=== PATIENT | female | born 1970 | race Caucasian/White ===

== ENCOUNTER 2016-12-04 16:29 | Emergency (ER) | payer MEDICAID ==
[2016-12-04 18:29] VITALS: BP 117/85
== END 2016-12-04 18:29 | disposition home or self-care (01) ==
LOC: ED 16:29
DX: H66.92 Otitis media, unspecified, left ear (principal); R51 Headache; I10 Essential (primary) hypertension
CPT/HCPCS: J0696; J1885; J2001

== ENCOUNTER 2017-05-09 11:55 | Inpatient (IN) | payer MEDICAID ==
[~2017-05-09] VITALS: Ht 165.1 cm; Wt 106.3 kg
[2017-05-09 12:45] LABS: RED CELL DISTRIBUTION WIDTH 13.2 % (11.5-14.5)
[2017-05-09 12:52] LABS: CALCIUM 8.8 mg/dL (8.5-10.1); CARBON DIOXIDE 28.5 mmol/L (21-32); CHLORIDE SERUM 103 mmol/L (98-107); CREATININE SERUM 0.7 mg/dL (0.6-1.0); GFR1 > 60 mL/min; GLUCOSE SERUM 101 mg/dL (74-106); POTASSIUM SERUM 4.1 mmol/L (3.5-5.1); SODIUM SERUM 139 mmol/L (136-145)
[2017-05-09 12:57] LABS: ALBUMIN 3.6 g/dL (3.4-5.0); ALKALINE PHOSPHATASE 68 U/L (46-116); ALT/SGPT 36 U/L (14-59); AST/SGOT 28 U/L (15-37); BILIRUBIN TOTAL 0.3 mg/dL (0.20-1.00); TOTAL PROTEIN, SERUM 8.2 g/dL (6.4-8.2)
[2017-05-09 13:25] LABS: PLATELET COUNT 216 x10^3mcL (130-400)
[2017-05-09 13:29] LABS: BASOPHIL % 3.3 % (0-2)
[2017-05-09 13:40] LABS: CHOLESTEROL/HDL RATIO 4.3
[2017-05-09 13:50] LABS: FREE T4 0.88 ng/dL (0.76-1.46); FREE THYROXINE INDEX 2.2 ug/dL (1.4-4.5); T4(THYROXINE) 6.6 ug/dL (4.7-13.3)
[2017-05-09 15:11] VITALS: BP 120/79
[2017-05-09] MEDS ORDERED: PROZ20 PO (17:05)
[2017-05-09] MEDS ORDERED: DICLOFENAC SODI75 MG PO (17:05)
[2017-05-09] MEDS ORDERED: TYL500 PO (17:07)
[2017-05-09] MEDS ORDERED: NITROSTAT0.4 MG SL (17:10)
[2017-05-09] MEDS ORDERED: ENALAPRIL MALEAT5 MG PO (17:10)
[2017-05-09] MEDS ORDERED: SIMVASTATIN10 M1 PO (17:11)
[2017-05-09] MEDS ORDERED: ABILIFY5 M1 PO (17:12)
[2017-05-09] MEDS ORDERED: VITAMIN D50000 I4 PO (17:12)
[2017-05-09] MEDS ORDERED: NEU300 PO (17:15)
[2017-05-09] MEDS ORDERED: GABAPENTIN300 M4 PO (17:15)
[2017-05-09] MEDS ORDERED: PROZ10 PO (17:18)
[2017-05-09 17:36] VITALS: BP 131/83
[2017-05-09 20:00] LABS: UA SPECIFIC GRAVITY <=1.005 (1.005-1.035); microscopic required? YES; urine erythrocyte TRACE (NEGATIVE)
[2017-05-09 20:19] LABS: AMPHETAMINE QUAL UR NONE DETECTED (NEG <=1000)
[2017-05-09 20:39] VITALS: BP 120/55
[2017-05-10 05:40] LABS: CALCIUM 8.6 mg/dL (8.5-10.1); CARBON DIOXIDE 30.1 mmol/L (21-32); CHLORIDE SERUM 107 mmol/L (98-107); CREATININE SERUM 0.7 mg/dL (0.6-1.0); GFR1 > 60 mL/min; GLUCOSE SERUM 88 mg/dL (74-106); MAGNESIUM 2.1 mg/dL (1.8-2.4); PHOSPHOROUS 4.5 mg/dL (2.5-4.9); POTASSIUM SERUM 4.1 mmol/L (3.5-5.1); SODIUM SERUM 141 mmol/L (136-145)
[2017-05-10 05:47] LABS: BASOPHIL % 0.6 % (0-2); PLATELET COUNT 175 x10^3mcL (130-400); RED CELL DISTRIBUTION WIDTH 14.3 % (11.5-14.5)
[2017-05-10 05:49] VITALS: BP 105/68
[2017-05-10 09:16] VITALS: BP 128/83
[2017-05-10 12:36] VITALS: BP 115/72
[2017-05-10 14:40] VITALS: BP 115/72
[2017-05-10 16:59] VITALS: BP 136/83
== END 2017-05-10 17:40 | disposition home or self-care (01) | DRG 203 ==
LOC: ED 11:55 → DU 13:03
PROVIDERS: Emergency Medicine; ADMIT Family Medicine
DX: M94.0 Chondrocostal junction syndrome [Tietze] (principal); N17.0 Acute kidney failure with tubular necrosis; I10 Essential (primary) hypertension; E78.5 Hyperlipidemia, unspecified; G43.909 Migraine, unspecified, not intractable, without status migrainosus; E66.9 Obesity, unspecified; Z68.39 Body mass index [BMI] 39.0-39.9, adult
CPT/HCPCS: 83880; 84439; 90658; J1885; J3010; J7030; Q0092

== ENCOUNTER 2019-01-08 17:25 | Emergency (ER) | payer MEDICAID ==
[~2019-01-08] VITALS: Ht 165.1 cm; Wt 106.1 kg
[~2019-01-08 17:25] MED LIST: ABILIFY5 M1 PO; DICLOFENAC SODI75 MG PO; ENALAPRIL MALEAT5 MG PO; GABAPENTIN300 M4 PO; NEU300 PO; NITROSTAT0.4 MG SL; PROZ10 PO; PROZ20 PO; SIMVASTATIN10 M1 PO; TYL500 PO; VITAMIN D50000 I4 PO
[2019-01-08 17:31] VITALS: Ht 165.1 cm; Wt 106.1 kg
[2019-01-08 19:21] LABS: BASOPHIL % 0.3 % (0-2); PLATELET COUNT 252 x10^3mcL (130-400); RED CELL DISTRIBUTION WIDTH 15.5 % (11.5-14.5)
[2019-01-08 19:29] LABS: CALCIUM 8.8 mg/dL (8.5-10.1); CARBON DIOXIDE 29.7 mmol/L (21-32); CHLORIDE SERUM 102 mmol/L (98-107); CREATININE SERUM 0.8 mg/dL (0.6-1.0); GFR1 > 60 mL/min; GLUCOSE SERUM 119 mg/dL (74-106); POTASSIUM SERUM 3.4 mmol/L (3.5-5.1); SODIUM SERUM 139 mmol/L (136-145)
[2019-01-08 19:36] LABS: ALBUMIN 3.3 g/dL (3.4-5.0); ALKALINE PHOSPHATASE 84 U/L (46-116); ALT/SGPT 49 U/L (14-59); AST/SGOT 24 U/L (15-37); BILIRUBIN TOTAL 0.3 mg/dL (0.20-1.00); LIPASE 102 IU/L (73-393); TOTAL PROTEIN, SERUM 7.9 g/dL (6.4-8.2)
[2019-01-08 20:43] VITALS: BP 105/65
== END 2019-01-08 20:43 | disposition home or self-care (01) ==
LOC: ED 17:25
PROVIDERS: Emergency Medicine
DX: A08.4 Viral intestinal infection, unspecified (principal)
CPT/HCPCS: J2270; J2405; Q0092

== ENCOUNTER 2019-02-20 23:54 | Emergency (ER) | payer MEDICAID ==
[~2019-02-20] VITALS: Ht 165.1 cm; Wt 103.9 kg
[2019-02-21 00:02] VITALS: BP 131/74; Ht 165.1 cm; Wt 103.9 kg
== END 2019-02-21 01:36 | disposition home or self-care (01) ==
LOC: ED 23:54
DX: L50.9 Urticaria, unspecified (principal); I10 Essential (primary) hypertension; E78.00 Pure hypercholesterolemia, unspecified; Z88.6 Allergy status to analgesic agent; Z90.710 Acquired absence of both cervix and uterus
CPT/HCPCS: J1100; Q0163

== ENCOUNTER 2019-03-12 21:01 | Inpatient (IN) | payer MEDICAID ==
[~2019-03-12] VITALS: Ht 165.1 cm; Wt 111.0 kg
[2019-03-12 21:07] VITALS: Ht 165.1 cm; Wt 111.0 kg
[2019-03-12 21:29] LABS: BASOPHIL % 0.5 % (0-2); PLATELET COUNT 235 x10^3mcL (130-400)
[2019-03-12 21:31] LABS: RED CELL DISTRIBUTION WIDTH 15.8 % (11.5-14.5)
[2019-03-12 21:40] LABS: CALCIUM 8.5 mg/dL (8.5-10.1); CARBON DIOXIDE 30.8 mmol/L (21-32); CHLORIDE SERUM 101 mmol/L (98-107); CREATININE SERUM 0.9 mg/dL (0.6-1.0); GFR1 > 60 mL/min; GLUCOSE SERUM 89 mg/dL (74-106); POTASSIUM SERUM 3.7 mmol/L (3.5-5.1); SODIUM SERUM 141 mmol/L (136-145)
[2019-03-12 21:44] LABS: ALKALINE PHOSPHATASE 75 U/L (46-116); ALT/SGPT 48 U/L (14-59); AST/SGOT 23 U/L (15-37); BILIRUBIN TOTAL 0.3 mg/dL (0.20-1.00); LIPASE 1123 IU/L (73-393); TOTAL PROTEIN, SERUM 7.5 g/dL (6.4-8.2)
[2019-03-12 21:47] LABS: ALBUMIN 3.3 g/dL (3.4-5.0)
--- NOTE | 2019-03-13 00:17 | NUR ---
REC'D A 48/F IN RM 15 WITH C/O EPIGASTRIC PAIN WITH NAUSEA SINCE THE AM. HX OF GALLBLADDER REMOVAL AND HERNIA REPAIR. PT DESCRIBES INTERMITTENT, PRESSURELIKE AND NONRADIATING. PT AAOX4, CLEAR SPEECH, RESP E/U, NO ACUTE DISTRESS NOTED.
--- NOTE | 2019-03-13 00:28 | NUR ---
PT INSTRUCTED TO GIVE CLEAN CATCH URINE SAMPLE. PT AMBULATED TO AND FROM RESTROOM WITH STEADY GAIT.
--- NOTE | 2019-03-13 01:32 | NUR ---
PT REPORTS PAIN IS INTERMITTENT, PT RATES PAIN A 5/10 AND STATES IT IS TOLERABLE. PT IS SPEAKING IN FULL CLEAR SENTENCES. PT FAMILY MEMBER AT BEDSIDE.
--- NOTE | 2019-03-13 02:40 | NUR ---
PT MADE AWARE OF POSSIBLE ADMISSION. PT REPORTS BEING HUNGRY, PT PROVIDED WITH APPLE JUICE AND SANDWHICH.
--- NOTE | 2019-03-13 03:48 | NUR ---
PT AMBULATED TO AND FROM RESTROOM WITH STEADY GAIT.
[2019-03-13] MEDS ORDERED: MICROZIDE12.5 MG PO (03:57)
[2019-03-13] MEDS ORDERED: NEURONTIN400 MG PO (03:58)
[2019-03-13] MEDS ORDERED: FLUOXETINE HYDR20 M2 PO (03:58)
[2019-03-13] MEDS ORDERED: STRATTERA40 MG PO (03:59)
[2019-03-13] MEDS ORDERED: VASOTEC20 MG PO (03:59)
[2019-03-13] MEDS ORDERED: ASPIR 8181 MG PO (03:59)
[2019-03-13] MEDS ORDERED: DICLOFENAC SOD75 M1 PO (04:00)
--- NOTE | 2019-03-13 04:47 | NUR ---
PT LAYING IN BED, PT EASILY AROUSABLE, NO S/S OF DISTRESS NOTED. PT FAMILY MEMBER AT BEDSIDE.
--- NOTE | 2019-03-13 05:36 | NUR ---
REPORT GIVEN TO LAURO VANG TO ASSUME CARE OF PT.
[2019-03-13 06:29] VITALS: BP 118/69
--- NOTE | 2019-03-13 06:43 | NUR ---
RECEIVED PT FROM ED VIA WHEELCHAIR, KEPT COMFORTABLE IN BED. A/O X4, ADMITTED WITH COMPLAINTS OF ABD. PAIN AND NAUSEA X1 DAY. RESP. EVEN AND UNLABORED. LUNG SOUNDS CLEAR BILAT. ON ROOM AIR, NO ACUTE DISTRESS NOTED. AFEBRILE AND VITAL SIGNS STABLE. MED-SURG. PT, DENIES CHEST PAIN OR PRESSURE AT THIS TIME. A\BD. SOFT, OBESE, BS ACTIVE, NO N/V NOTED AT THIS TIME. IVF, NS AT 150ML/HR, INFUSING VIA RAC. SITE CLEAR. SKIN WARM AND DRY TO TOUCH, INTACT. AMBULATORY. ORIENTED TO ROOM AND SURROUNDINGS. BED IN LOW POSITION. CALL LIGHT WITHIN REACH.WILL ENDORSE TO INCOMING NURSE.
--- NOTE | 2019-03-13 07:10 | NUR ---
ASSUMED CARE OF PATIENT. AWAKE AND ALERT THIS MORNING. NO COMPLAINTS OF PAIN OR DISCOMFORT. NO APPARENT DISTRESS NOTED. NO COMPLAINTS OF N/V. IV TO RAC PATENT AND INUFSING NS AT 150ML/HR. WILL CONTINUE TO MONITOR.
[2019-03-13 07:39] LABS: CALCIUM 7.7 mg/dL (8.5-10.1); CARBON DIOXIDE 29.6 mmol/L (21-32); CHLORIDE SERUM 106 mmol/L (98-107); CREATININE SERUM 0.8 mg/dL (0.6-1.0); GFR1 > 60 mL/min; GLUCOSE SERUM 94 mg/dL (74-106); LACTIC DEHYDROGENASE (LDH) 174 U/L (100-190); MAGNESIUM 1.9 mg/dL (1.8-2.4); PHOSPHOROUS 4.2 mg/dL (2.5-4.9); POTASSIUM SERUM 3.9 mmol/L (3.5-5.1); SODIUM SERUM 145 mmol/L (136-145)
[2019-03-13 07:57] LABS: BASOPHIL % 0.6 % (0-2); PLATELET COUNT 210 x10^3mcL (130-400)
[2019-03-13 08:05] LABS: RED CELL DISTRIBUTION WIDTH 16.1 % (11.5-14.5)
[2019-03-13 08:22] VITALS: BP 121/70
--- NOTE | 2019-03-13 08:45 | NUR ---
PATIENT COMPLAINING OF 7/10 HEADACHE. PRN TYLENOL PROVIDED. ALSO REQUESTING ICE PACK FOR FOREHEAD; PROVIDED.
--- NOTE | 2019-03-13 09:43 | NUR ---
PATIENT SEEN SLEEPING WITH EQUAL AND UNLABORED RESPIRATIONS. NO APPARENT DISTRESS NOTED. NO NEW ISSUES.
--- NOTE | 2019-03-13 11:47 | NUR ---
PATIENT SEEN RESTING IN BED WTIH DAUGHTER AT BEDSIDE. COMPLAINING OF MILD HEADACHE, MANAGED WITH ICE PACKS. NO NEW ISSUES.
[2019-03-13 13:56] LABS: microscopic required? YES; urine erythrocyte 1+ (NEGATIVE)
[2019-03-13 14:03] LABS: AMPHETAMINE QUAL UR NONE DETECTED (See below)
--- NOTE | 2019-03-13 15:26 | NUR ---
COMPLAINING OF 7/10 HEADACHE AND RUQ PAIN. PRN CHANTELLE PROVIDED.
--- NOTE | 2019-03-13 16:33 | NUR ---
PATIENT RESTING IN BED WITH MILD HEADACHE, MEDICATED WITH NORCO AND WAS EFFECTIVE. NEW ICE PACKS APPLIED TO HEAD AND BACK OF NECK FOR COMFORT. UPDATED ON PLAN OF CARE. DAUGHTER AT BEDSIDE. NO NEW ISSUES.
[2019-03-13 17:30] VITALS: BP 102/52
--- NOTE | 2019-03-13 18:51 | NUR ---
PATIENT SEEN RESTING IN BED WITH DAUGHTER AT BEDSIDE. DENIES ANY N/V. NO COMPLAINTS OF PAIN OR DIOSCOMFORT. NO APPARENT DISTRESS NOTED. IV INFUSING NS AT 100ML/HR. WILL ENDORSE CARE TO ONCOMING RN.
--- NOTE | 2019-03-13 19:28 | NUR ---
SHIFT REASSESSMENT DONE.PATIENT ALERT AND OREINTED.MAINLY DANISH,NEEDS ANTICIPATED.FAMILY AT BEDSIDE,SUPPORTIVE OF CARE.BREATHING EASY.AMBULATORY PER REPORT.NS AT 100 CC/ HOUR RAC.INTACT.MEDSURG PATIENT.SCD ORDERED.NPO/PANCREATITIS.VOIDING.CALL LIGHT IN REACH.
[2019-03-13 20:42] VITALS: BP 97/52
--- NOTE | 2019-03-13 21:30 | NUR ---
ALL PM MEDS GIVEN.FAMILY LEFT ALREADY.NEW IV BAG IN PLACE.HAD PAIN SHOT/HEADACHE,SAYS SHE GETS HEADACHE WHEN HUNGRY.
--- NOTE | 2019-03-14 00:47 | NUR ---
PATENT CHECKED AT INTERVALS FOR NEEDS AND SAFETY.CALL LIGHT IN REACH FOR ASSISTANCE.
--- NOTE | 2019-03-14 04:32 | NUR ---
SLEEPING COMFORTABLY.NO RESP DISTRESS.
[2019-03-14 05:47] VITALS: BP 95/53
--- NOTE | 2019-03-14 06:13 | NUR ---
NO MAJOR DISTRESS THIS SHIFT.HAD NAUSEA EARLIER,GIVEN ZOFRAN IVP.NS INFUSING.WILL ENDORSE TO NEXT SHIFT.
[2019-03-14 06:56] LABS: BASOPHIL % 0.3 % (0-2); PLATELET COUNT 199 x10^3mcL (130-400)
[2019-03-14 07:00] LABS: CALCIUM 7.9 mg/dL (8.5-10.1); CARBON DIOXIDE 27.4 mmol/L (21-32); CHLORIDE SERUM 104 mmol/L (98-107); CREATININE SERUM 0.7 mg/dL (0.6-1.0); GFR1 > 60 mL/min; GLUCOSE SERUM 87 mg/dL (74-106); MAGNESIUM 1.9 mg/dL (1.8-2.4); PHOSPHOROUS 3.3 mg/dL (2.5-4.9); POTASSIUM SERUM 3.8 mmol/L (3.5-5.1); SODIUM SERUM 140 mmol/L (136-145)
[2019-03-14 07:06] LABS: CHOLESTEROL 151 mg/dL (<200); HDL CHOLESTEROL 54 mg/dL (40-60)
--- NOTE | 2019-03-14 07:14 | NUR ---
RECEIVED REPORT FROM JIMBO VANG, PT IN BED W/ NO ACUTE DISTRESS
--- NOTE | 2019-03-14 07:15 | NUR ---
PT SLEEPING IN BED, IN NO ACUTE DISTRESS, VERBAL, AXOX4, CALM AND COPPERATIVE, PERRLA, NO REDNESS/DRAINAGE, RESP EVEN, NO SOB/COUGH, DENIED CP/PRESSURE/DIEHL, DENIED N/V/D, MEDSURG, CHEST RISE SYMMETRICALLY, ABD ROUND AND MILD-TENDER TO TOUCH, S/P PANCREATITIS, CONTINENT, AMBULATORY, PALP PULSES, CAP REFILL < 3 SECS, IV PATENTN AND INFUSING WELL, SKIN D/W/C, NPO, ALL NEEDS ADDRESSED AT THIS TIME, SAFETY PROTOCOL FOLLOWED, CONTINUE TO MONITOR
--- NOTE | 2019-03-14 08:31 | NUR ---
PT REPORTED MOD DIEHL, 12/31, OFFERED TYLENOL PER MD ORDER, REFUSED, REQUESTED STRONGER PAIN MED, NORCO 7.5MG/325MG X 1 TAB GIVEN PER PRN ORDER, TAKEN WELL, EDUCATED ABOUT ASE, VERBALLY UNDERSTANDING, CONTINUE TO MONITOR
--- NOTE | 2019-03-14 08:42 | NUR ---
PT SLEEPING IN BED, IN NO ACUTE DISTRESS, AM MED GIVEN PER MD ORDER VIA EMAR, TAKEN WELL, NO ASE NOTED AT THIS TIME, CONTINUE TO MONITOR
[2019-03-14 08:47] VITALS: BP 97/59
[2019-03-14 10:20] VITALS: BP 97/59
--- NOTE | 2019-03-14 13:37 | NUR ---
PT HAD LUNCH, GOOD APPETITE, CONSUMED 100%
--- NOTE | 2019-03-14 13:58 | NUR ---
DC PAPER SIGNED, KEPT IN CHART, IV REMOVED, IV CATH TIP INTACT, NO ACTIVE BLEDING NOTED, PT MADE AWARE THAT IT'S HER RESPONSIBILITY TO F/U WITH APPOINTMENT AND PCP AFTER DC HOME, VERBALLY UNDERSTANDING, SON AT BEDSIDE DRIVE PT HOME, PT WENT HOME W/ FAMILY, NURSING STAFFS ASISTED PT TO LOBBY VIA WC, PT LEFT IN NO ACUTE DISTRESS
== END 2019-03-14 13:58 | disposition home or self-care (01) | DRG 282 ==
LOC: ED 21:01 → MU 03-13 04:58
PROVIDERS: Emergency Medicine; ADMIT General Practice
DX: K85.90 Acute pancreatitis without necrosis or infection, unspecified (principal); E44.0 Moderate protein-calorie malnutrition; I10 Essential (primary) hypertension; F32.9 Major depressive disorder, single episode, unspecified; E78.5 Hyperlipidemia, unspecified; E66.9 Obesity, unspecified; G47.00 Insomnia, unspecified; Z79.82 Long term (current) use of aspirin; Z68.38 Body mass index [BMI] 38.0-38.9, adult
CPT/HCPCS: G0378; J2270; J2405; J7030; Q9967

== ENCOUNTER 2019-12-23 23:09 | Inpatient (IN) | payer MEDICAID ==
[~2019-12-23] VITALS: Ht 165.1 cm; Wt 109.3 kg
[~2019-12-23 23:09] MED LIST changes: +ASPIR 8181 MG PO; +DICLOFENAC SOD75 M1 PO; +FLUOXETINE HYDR20 M2 PO; +MICROZIDE12.5 MG PO; +NEURONTIN400 MG PO; +STRATTERA40 MG PO; +VASOTEC20 MG PO
[2019-12-23 23:21] VITALS: Ht 165.1 cm; Wt 109.3 kg
[2019-12-24 00:23] LABS: BASOPHIL % 0.8 % (0-2); PLATELET COUNT 209 x10^3mcL (130-400)
[2019-12-24 00:24] LABS: RED CELL DISTRIBUTION WIDTH 15.3 % (11.5-14.5)
[2019-12-24 00:34] LABS: CALCIUM 8.4 mg/dL (8.5-10.1); CARBON DIOXIDE 28.7 mmol/L (21-32); CHLORIDE SERUM 105 mmol/L (98-107); CREATININE SERUM 0.8 mg/dL (0.6-1.0); GFR1 > 60 mL/min; GLUCOSE SERUM 96 mg/dL (74-106); POTASSIUM SERUM 3.7 mmol/L (3.5-5.1); SODIUM SERUM 142 mmol/L (136-145)
[2019-12-24 00:38] LABS: ALKALINE PHOSPHATASE 59 U/L (46-116); ALT/SGPT 26 U/L (14-59); AST/SGOT 21 U/L (15-37); BILIRUBIN TOTAL 0.1 mg/dL (0.20-1.00); TOTAL PROTEIN, SERUM 7.3 g/dL (6.4-8.2)
[2019-12-24 00:41] LABS: ALBUMIN 3.1 g/dL (3.4-5.0)
[2019-12-24] MEDS ORDERED: VENLAFAXINE HYD75 M2 PO (01:17)
[2019-12-24] MEDS ORDERED: V10 PO (01:17)
[2019-12-24] MEDS ORDERED: COLACE100 MG PO (01:18)
[2019-12-24] MEDS ORDERED: FORTAMET500 M1 PO (01:20)
[2019-12-24] MEDS ORDERED: LIPITOR40 MG PO (01:20)
[2019-12-24 02:43] VITALS: BP 123/66
[2019-12-24 06:28] LABS: BASOPHIL % 0.4 % (0-2); PLATELET COUNT 208 x10^3mcL (130-400)
[2019-12-24 06:39] LABS: CALCIUM 8.5 mg/dL (8.5-10.1); CARBON DIOXIDE 28.6 mmol/L (21-32); CHLORIDE SERUM 107 mmol/L (98-107); CHOLESTEROL 165 mg/dL (<200); CHOLESTEROL/HDL RATIO 3.5; CREATININE SERUM 0.8 mg/dL (0.6-1.0); GFR1 > 60 mL/min; GLUCOSE SERUM 93 mg/dL (74-106); HDL CHOLESTEROL 47 mg/dL (40-60); MAGNESIUM 2.2 mg/dL (1.8-2.4); SODIUM SERUM 143 mmol/L (136-145); TRIGLYCERIDES 160 mg/dL (<150)
[2019-12-24 06:52] LABS: RED CELL DISTRIBUTION WIDTH 15.2 % (11.5-14.5)
[2019-12-24 06:56] VITALS: BP 123/75
[2019-12-24 07:42] LABS: AMPHETAMINE QUAL UR NONE DETECTED (See below)
[2019-12-24 08:35] VITALS: BP 121/82
[2019-12-24 08:38] LABS: microscopic required? YES; urine erythrocyte TRACE (NEGATIVE)
[2019-12-24 12:50] VITALS: BP 117/72
[2019-12-24 17:30] VITALS: BP 100/61
[2019-12-24 21:10] VITALS: BP 115/77
[2019-12-25 05:44] VITALS: BP 114/73
[2019-12-25 07:04] LABS: CALCIUM 8.7 mg/dL (8.5-10.1); CARBON DIOXIDE 26.9 mmol/L (21-32); CHLORIDE SERUM 104 mmol/L (98-107); CREATININE SERUM 0.8 mg/dL (0.6-1.0); GFR1 > 60 mL/min; GLUCOSE SERUM 94 mg/dL (74-106); MAGNESIUM 2.3 mg/dL (1.8-2.4); PHOSPHOROUS 4.7 mg/dL (2.5-4.9); POTASSIUM SERUM 3.7 mmol/L (3.5-5.1); SODIUM SERUM 140 mmol/L (136-145)
[2019-12-25 07:59] VITALS: BP 106/59
[2019-12-25 09:40] LABS: BASOPHIL % 0.4 % (0-2); PLATELET COUNT 226 x10^3mcL (130-400)
[2019-12-25 09:42] LABS: RED CELL DISTRIBUTION WIDTH 15.6 % (11.5-14.5)
[2019-12-25 11:57] VITALS: BP 125/71
[2019-12-25 17:05] VITALS: BP 121/70
[2019-12-25 20:36] VITALS: BP 137/88
[2019-12-26 05:25] VITALS: BP 108/67
[2019-12-26 07:53] VITALS: BP 129/87
[2019-12-26 08:39] LABS: BASOPHIL % 0.5 % (0-2); PLATELET COUNT 243 x10^3mcL (130-400)
[2019-12-26 08:47] LABS: CALCIUM 9.2 mg/dL (8.5-10.1); CARBON DIOXIDE 31.2 mmol/L (21-32); CHLORIDE SERUM 102 mmol/L (98-107); CREATININE SERUM 0.7 mg/dL (0.6-1.0); GFR1 > 60 mL/min; GLUCOSE SERUM 91 mg/dL (74-106); POTASSIUM SERUM 3.9 mmol/L (3.5-5.1); SODIUM SERUM 138 mmol/L (136-145)
[2019-12-26 12:07] VITALS: BP 115/82
[2019-12-26 17:13] VITALS: BP 102/65
[2019-12-26 21:18] VITALS: BP 101/64
[2019-12-27] VITALS (13 sets, daily range): BP systolic 90–125; BP diastolic 48–84
[2019-12-28 05:30] VITALS: BP 100/57
[2019-12-28 08:27] VITALS: BP 103/62
[2019-12-28] MEDS ORDERED: METOPROLOL TART25 M1 PO (10:10)
[2019-12-28 13:44] VITALS: BP 116/71
[2019-12-28 14:42] VITALS: BP 116/71
== END 2019-12-28 16:39 | disposition home or self-care (01) | DRG 190 ==
LOC: ED 23:09 → DU 23:35
PROVIDERS: Emergency Medicine; Family Medicine; Internal Medicine Geriatric Medicine; ADMIT Internal Medicine; ATTEND Internal Medicine
PROC: B2111ZZ Fluoroscopy of Multiple Coronary Arteries using Low Osmolar Contrast (ICD-10-PCS; 2019-12-27)
PROC: 4A023N7 Measurement of Cardiac Sampling and Pressure, Left Heart, Percutaneous Approach (ICD-10-PCS; principal; 2019-12-27 15:00)
DX: I21.4 Non-ST elevation (NSTEMI) myocardial infarction (principal); E44.0 Moderate protein-calorie malnutrition; E83.51 Hypocalcemia; Z68.41 Body mass index [BMI] 40.0-44.9, adult; D64.9 Anemia, unspecified; F32.9 Major depressive disorder, single episode, unspecified; I10 Essential (primary) hypertension; F41.9 Anxiety disorder, unspecified; E78.00 Pure hypercholesterolemia, unspecified; G47.00 Insomnia, unspecified; Z20.828 Contact with and (suspected) exposure to other viral communicable diseases; R73.03 Prediabetes; E66.9 Obesity, unspecified; E78.5 Hyperlipidemia, unspecified; Z90.49 Acquired absence of other specified parts of digestive tract; Z83.3 Family history of diabetes mellitus; Z82.49 Family history of ischemic heart disease and other diseases of the circulatory system; Z79.84 Long term (current) use of oral hypoglycemic drugs; Z79.899 Other long term (current) drug therapy
CPT/HCPCS: CLHCL; 76937; 83880; C1760; C1769; C1894; G0378; J1644; J1650; J2001; J2250; J2405; J3010; J7030; J7050; Q0092; Q0177; Q9967; U0003-CS